=== PATIENT | male | born 1965 | race African-American/Black ===

== ENCOUNTER → 2020-01-24 | Outpatient (CLI) | payer OTHER | LOC: MHCPAIN 14:02 | DX: M54.5 Low back pain (principal); G89.29 Other chronic pain ==

== ENCOUNTER → 2020-01-29 | Outpatient (CLI) | payer OTHER | LOC: MHCPAIN 08:49 | DX: M47.816 Spondylosis without myelopathy or radiculopathy, lumbar region (principal); G89.29 Other chronic pain | CPT/HCPCS: G0463 ==